=== PATIENT | female | born 1955 | race African-American/Black ===

== ENCOUNTER 2016-12-12 17:09 | Emergency (ER) | payer BC ==
[~2016-12-12] VITALS: Ht 149.9 cm; Wt 55.0 kg
[~2016-12-12 17:09] MED LIST: BISTOLIC
[2016-12-12] MEDS ORDERED: LORAZEPAM 1MG TABLET PO ONE (18:15)
[2016-12-12 19:02] VITALS: BP 164/85
== END 2016-12-12 19:40 | disposition home or self-care (01) ==
LOC: ER 17:59
DX: F41.0 Panic disorder [episodic paroxysmal anxiety] (principal); I10 Essential (primary) hypertension
CPT/HCPCS: 99284

== ENCOUNTER 2017-12-29 15:05 | Emergency (ER) | payer BC ==
[~2017-12-29] VITALS: Ht 160 cm; Wt 65.0 kg
[2017-12-29 16:13] LABS: BASOPHILS % 0.8 % (0.0-2.0); EOSINOPHILS % 0.9 % (0.0-5.0); HEMATOCRIT. 37.2 % (36.0-48.0); HEMOGLOBIN. 12.6 g/dL (12.0-16.0); LYMPHOCYTES % 39.9 % (20.0-50.0); MEAN CORPUSCULAR HEMOGLOBIN 30.3 pg (28.0-32.0); MEAN CORPUSCULAR VOLUME 89.7 fL (81.0-99.0); MEAN PLATELET VOLUME 7.4 fl (7.4-10.4); MONOCYTES % 5.5 % (2.0-8.0); NEUTROPHILS % 52.9 % (40.0-76.0); PLATELET 281 x1000/uL (130-400); RED BLOOD CELL COUNT 4.15 mill/uL (4.2-5.4); RED CELL DISTRIBUTION WIDTH 14.3 % (11.6-14.6)
[2017-12-29 16:18] LABS: CHLORIDE 105 mEq/L (98-107)
[2017-12-29 16:29] LABS: CREATINE KINASE MB FRACTION 2.3 ng/mL (0.5-3.6)
[2017-12-29 16:30] LABS: PARTIAL THROMBOPLASTIN TIME 28.9 sec (23.4-31.0); PROTHROMBIN TIME 10.7 sec (9.4-11.6)
[2017-12-29 18:15] VITALS: BP 156/92
== END 2017-12-29 18:25 | disposition home or self-care (01) ==
LOC: ER 15:05 → CANBEDREQ 18:58
DX: I10 Essential (primary) hypertension (principal); R51 Headache; R00.1 Bradycardia, unspecified; F41.9 Anxiety disorder, unspecified
CPT/HCPCS: 36415; 70450; 71045; 80053; 82553; 83735; 83880; 84484; 85025; 85610; 85730; 93005; 99285

== ENCOUNTER 2022-01-19 12:17 | Emergency (ER) | payer BC ==
[~2022-01-19] VITALS: Ht 152.4 cm; Wt 54.0 kg
[2022-01-19 12:20] VITALS: BP 131/86
[2022-01-19] MEDS ORDERED: CYCLOBENZAPRINE 10MG TABLET PO ONE (14:15)
[2022-01-19] MEDS ORDERED: KETOROLAC 30MG/ML VIAL IM ONE (14:15)
[2022-01-19] MEDS ORDERED: CYCL5TAB PO (15:34)
[2022-01-19] MEDS ORDERED: NAPR-1176 MT (15:34)
== END 2022-01-19 16:08 | disposition home or self-care (01) ==
LOC: ER 12:17
DX: S70.02XA Contusion of left hip, initial encounter (principal); M54.50 Low back pain, unspecified; W01.0XXA Fall on same level from slipping, tripping and stumbling without subsequent striking against object, initial encounter; Y93.01 Activity, walking, marching and hiking; Y92.480 Sidewalk as the place of occurrence of the external cause
CPT/HCPCS: 72100; 73502; 96372; 99284; J1885